=== PATIENT | female | born 1960 | race African-American/Black ===

== ENCOUNTER 2017-01-13 13:46 | Emergency (ER) | payer MEDICAID, OTHER ==
[~2017-01-13] VITALS: Ht 160 cm; Wt 138.0 kg
[~2017-01-13 13:46] MED LIST: AUD NEB; METF500T7 PO
[2017-01-13 14:11] VITALS: BP 137/73
[2017-01-13] MEDS ORDERED: LISI-662 PO (14:18)
[2017-01-13] MEDS ORDERED: ASPI-556 PO (14:18)
[2017-01-13] MEDS ORDERED: HYDR25TA PO (14:18)
[2017-01-13] MEDS ORDERED: PredniSONE 20 MG TABLET PO ONE (16:15)
[2017-01-13 16:48] LABS: GLUCOSE,POINT OF CARE 77 MG/DL (70-110)
[2017-01-13] MEDS ORDERED: 0.9% SODIUM CHLORIDE 5 ML NEB SOLUTION NEB ONE ×2 (17:10→17:14)
[2017-01-13] MEDS ORDERED: ALBUTEROL SULFATE 2.5 MG/0.5 ML NEB SOLUTION NEB ONE (17:15)
== END 2017-01-13 17:37 | disposition home or self-care (01) ==
LOC: EMS 13:50
DX: J98.01 Acute bronchospasm (principal); E11.9 Type 2 diabetes mellitus without complications; J44.9 Chronic obstructive pulmonary disease, unspecified; J45.909 Unspecified asthma, uncomplicated; I11.0 Hypertensive heart disease with heart failure; I50.9 Heart failure, unspecified; Z98.890 Other specified postprocedural states; Z79.82 Long term (current) use of aspirin; Z88.0 Allergy status to penicillin
CPT/HCPCS: 71020; 82962; 94640; 99284; J7512; J7613

== ENCOUNTER 2017-04-05 12:22 | Emergency (ER) | payer OTHER ==
[~2017-04-05] VITALS: Ht 160 cm; Wt 137.7 kg
[~2017-04-05 12:22] MED LIST changes: +ASPI-556 PO; +HYDR25TA PO; +LISI-662 PO; -METF500T7 PO
[2017-04-05 12:52] LABS: GLUCOSE,POINT OF CARE 78 MG/DL (70-110)
[2017-04-05 13:01] VITALS: BP 113/51
[2017-04-05] MEDS ORDERED: PERTUSS(ACELL),DIPH,TET VAC/PF 0.5 ML VIAL IM ONE (13:15)
== END 2017-04-05 13:41 | disposition home or self-care (01) ==
LOC: EMS 12:23
DX: S91.332A Puncture wound without foreign body, left foot, initial encounter (principal); J44.9 Chronic obstructive pulmonary disease, unspecified; J45.909 Unspecified asthma, uncomplicated; I11.0 Hypertensive heart disease with heart failure; I50.9 Heart failure, unspecified; E11.9 Type 2 diabetes mellitus without complications; Z88.0 Allergy status to penicillin; W25.XXXA Contact with sharp glass, initial encounter; Y93.89 Activity, other specified; Y92.89 Other specified places as the place of occurrence of the external cause; Y99.8 Other external cause status
CPT/HCPCS: 82962; 90471; 90715; 99283

== ENCOUNTER 2017-07-30 12:46 | Emergency (ER) | payer OTHER ==
[~2017-07-30] VITALS: Ht 160 cm; Wt 136.4 kg
[2017-07-30 12:58] LABS: GLUCOSE,POINT OF CARE 124 MG/DL (70-110)
[2017-07-30] MEDS ORDERED: IPRATROPIUM BROMIDE 0.5 MG/2.5 ML NEB SOLUTION NEB ONE (14:30)
[2017-07-30] MEDS ORDERED: ALBUTEROL SULFATE 5 MG/ML 20 ML NEB SOLN [BULK] NEB ONE (14:30)
[2017-07-30] MEDS ORDERED: 0.9% SODIUM CHLORIDE 5 ML NEB SOLUTION NEB ONE (14:46)
[2017-07-30] MEDS ORDERED: PredniSONE 20 MG TABLET PO ONE (16:45)
[2017-07-30 17:37] VITALS: BP 142/70
== END 2017-07-30 17:38 | disposition home or self-care (01) ==
LOC: EMS 12:46
DX: J45.909 Unspecified asthma, uncomplicated (principal); J44.9 Chronic obstructive pulmonary disease, unspecified; I11.0 Hypertensive heart disease with heart failure; I50.9 Heart failure, unspecified; Z88.0 Allergy status to penicillin
CPT/HCPCS: 71046; 82962; 94644; 99285; J7512; J7611

== ENCOUNTER 2018-10-07 06:57 | Emergency (ER) | payer OTHER ==
[~2018-10-07] VITALS: Ht 160 cm; Wt 133.2 kg
[2018-10-07 07:14] LABS: GLUCOSE,POINT OF CARE 104 MG/DL (70-110)
[2018-10-07] MEDS ORDERED: IPRATROPIUM BROMIDE 0.5 MG/2.5 ML NEB SOLUTION NEB ONE (07:45)
[2018-10-07] MEDS ORDERED: ALBUTEROL SULFATE 2.5 MG/0.5 ML NEB SOLUTION NEB ONE (07:45)
[2018-10-07 08:31] LABS: EOSINOPHILS % (AUTO) 5.5 % (1.0-6.0); HEMOGLOBIN 12.7 g/dL (12.0-16.0); LYMPHOCYTES # (AUTO) 1.8 K/uL (1.0-4.8); LYMPHOCYTES % (AUTO) 17.9 % (22.0-44.0); MEAN CORPUSCULAR HEMOGLOBIN 30.2 pg (26.0-34.0); MEAN CORPUSCULAR HGB CONC 33.3 G/dL (31.0-37.0); MEAN CORPUSCULAR VOLUME 91 fL (80-100); MONOCYTES % (AUTO) 10.5 % (2.0-9.0); NEUTROPHILS # (AUTO) 6.5 K/uL (1.8-7.7); NEUTROPHILS % (AUTO) 65.1 % (40.0-70.0); PLATELET COUNT (AUTO) 185 K/uL (150-450); RED BLOOD CELL COUNT(AUTO) 4.19 MIL/uL (4.00-5.20); RED CELL DISTRIBUTION WIDTH 14.1 % (11.5-14.5)
[2018-10-07 08:44] LABS: ANION GAP 9 mmol/L (8-16); CALCIUM, TOTAL 8.8 mg/dL (8.8-10.5); CARBON DIOXIDE 28 mmol/L (22-29); CHLORIDE 104 mmol/L (98-107); CREATININE 1.05 mg/dL (0.60-1.30); GLOMERULAR FILTR. RATE CALC > 60 mL/min (>60); GLUCOSE,RANDOM 99 mg/dL (70-110); POTASSIUM 3.8 mmol/L (3.5-5.1); SODIUM SERUM 141 mmol/L (136-145); UREA NITROGEN, BLOOD 19 mg/dL (7-18)
[2018-10-07 08:49] LABS: ALANINE AMINOTRANSFERASE 19 U/L (12-78); ALBUMIN 3.2 g/dL (3.4-5.0); ALKALINE PHOSPHATASE 88 U/L (46-116); ASPARTATE AMINOTRANSFERASE 23 U/L (15-37); BILIRUBIN,TOTAL 0.6 mg/dL (0.1-1.0)
[2018-10-07 08:50] LABS: B-TYPE NATRIURETIC PEPTIDE 72 pg/mL (0-100)
[2018-10-07 09:52] VITALS: BP 139/88
== END 2018-10-07 10:21 | disposition home or self-care (01) ==
LOC: EMS 06:59
DX: J45.909 Unspecified asthma, uncomplicated (principal); I11.0 Hypertensive heart disease with heart failure; I50.9 Heart failure, unspecified; E11.9 Type 2 diabetes mellitus without complications; Z88.0 Allergy status to penicillin; Z79.82 Long term (current) use of aspirin
CPT/HCPCS: 93005; 94640